=== PATIENT | female | born 1980 | race Caucasian/White ===

== ENCOUNTER 2019-11-27 13:25 | Outpatient (REF) | payer BC, SELFPAY | END 2019-11-27 13:26 | disposition home or self-care (01) | LOC: HO.HMGCLDS 13:25 | PROVIDERS: PCP Internal Medicine; Visit Provider Internal Medicine | DX: Z20.828 Contact with and (suspected) exposure to other viral communicable diseases (principal) | CPT/HCPCS: 87635 ==

== ENCOUNTER 2020-01-01 07:18 | Outpatient (REF) | payer BC, SELFPAY | END 2020-01-01 07:19 | disposition home or self-care (01) | LOC: HO.HMGCLDS 07:18 | PROVIDERS: PCP Internal Medicine; Visit Provider Internal Medicine | DX: Z20.828 Contact with and (suspected) exposure to other viral communicable diseases (principal) | CPT/HCPCS: C9803; U0003 ==